=== PATIENT | female | born 1970 | race Caucasian/White ===

== ENCOUNTER 2021-09-11 09:25 | Emergency (ER) | payer OTHER, SELFPAY ==
[2021-09-11 09:32] VITALS: BP 142/91; PULSE 79; RESP 18; TEMP 36.5; O2SAT 98; BMI 27.4
--- NOTE | 2021-09-11 10:24 | ED.MEDCLEAR ---
HPI - Medical Clearance General Chief complaint: Medical Clearance Stated complaint: medical clearance Time Seen by Provider: 09/11/21 10:18 Source: patient Mode of arrival: ambulatory Limitations: no limitations History of Present Illness HPI Narrative: 50-year-old female reports that she is currently in a sober house of [facility] and she reports that she drank approximately 6 vodka shots last night and then went back to the sober house and she is not supposed to be drinking anything. She reports that she went right to bed although there was 2 other females that were arguing and she got up and told them to go to bed and 1 of them told her that she smelled like booze Therefore she was told to come here for medical clearance. She denies any drug uses. She reports that they took a drug screen by urine last night therefore she does not need a drug urine screen. She denies any other symptoms complaints or concerns or thoughts of withdrawal at this time. She denies any SI/HI/ auditory visualizations thoughts of self-injury. complaint: medical clearance requested Onset (ago): day(s) ( Today) Reason for Medical Clearance: intoxication Place: other ( living at Sober House at this time) Alleged Intoxication: Yes Compliant with Home Medications: Yes Traumatic Symptoms: denies traumatic injury Associated Symptoms: denies other symptoms Treatments Prior to Arrival: none Related Information Allergies Allergy/AdvReac Type Severity Reaction Status Date / Time No Known Allergies Allergy Verified 09/11/21 09:32 Review of Systems Review of Systems: Constitutional : No Fever, No Chills ENT/Mouth : No Ear Pain, No Nasal Congestion, No sore throat Eyes: No Eye Pain, No Swelling, No Redness Cardiovascular : No Chest Pain, No SOB Respiratory : No Cough, No Sputum, No Dyspnea Gastrointestinal : No ingestions, No Nausea, No Vomiting, No Diarrhea, No Hematochezia, No Melena Genitourinary : No Dysuria, No Urinary Frequency, No Hematuria Musculoskeletal : No Myalgias Skin : No Skin Lesions, No rash Neuro : No Weakness, No Numbness, No Paresthesias, No Dizziness, No Headache Psych : No Anxiety, No Depression, No SI/HI, No AVH, No thoughts of self injury Heme/Lymph: No Lymphadenopathy Endocrine : No Polyuria, No Polydipsia Yes all other systems are reviewed and are negative [facility] Past Medical History Attestation statement: The following information was validated with the patient. Social History Social History Advance Directives: No Advance Directives Information Provided: Yes Patient : No Physical Exam Vital Signs: Vital Signs: Last Vital Signs Temp 97.7 F 09/11/21 09:32 Pulse 79 09/11/21 09:32 Resp 18 09/11/21 09:32 BP 142/91 H 09/11/21 09:32 Pulse Ox 98 09/11/21 09:32 BMI result Body Mass Index 27.4 vital signs have been reviewed as normal and appeared to be correct. Blood pressure 142/91 Heart rate normal. Respiration rate normal. Temperature normal. Oxygen saturation normal. Appearance: Alert. Oriented X3. No acute distress. Head: Normal external exam. Normocephalic. Eyes: PERRLA. EOMI. Conjunctiva and sclera normal. Eyelids normal. ENT: Pharynx normal. Uvula midline. Moist mucous membranes. Neck: Normal inspection. Neck supple. FROM. No adenopathy. No meningeal signs. CVS: Normal heart rate and rhythm. Respiratory: No respiratory distress. Painless inspiration. Back: Full range of motion noted. Skin: Skin warm and dry. Normal skin color. Normal skin turgor. No rashes/lesions/lacerations noted. Extremities: Extremities exhibit normal range of motion. Extremities nontender. Neuro: Oriented X 3. No motor deficit. No sensory deficit. Reflexes normal. Normal steady gait. Course Course Course Narrative: 10:20am - 50-year-old female reports that she is currently in a sober house of [facility] and she reports that she drank approximately 6 vodka shots last night and then went back to the sober house and she is not supposed to be drinking anything. She reports that she went right to bed although there was 2 other females that were arguing and she got up and told them to go to bed and 1 of them told her that she smelled like booze Therefore she was told to come here for medical clearance. She denies any drug uses. She reports that they took a drug screen by urine last night therefore she does not need a drug urine screen. Plan: Labs Including ETOH level then re-evaluate. Reevaluation(s) Reevaluation #1: - ETOH level negative. All other labs within normal limits. Will DC home instructions to follow-up with primary care provider and to stay sober as she is supposed to be on a sober house and not drinking any alcohol and not doing any drugs. Patient understands agrees with this plan. Time: 11:24 MDM - Medical Clearance Medical Records Attestation: I reviewed the patient's medical records. Lab Data Attestation: I reviewed the patient's lab results. Result diagrams: 09/11/21 10:54 09/11/21 10:54 Labs: Lab Results 09/11/21 09/11/21 09/11/21 Range/Units 10:54 10:54 10:54 WBC 6.0 (4.8-10.8) X10*3/uL RBC 4.23 (4.20-5.50) X10*6/uL Hgb 12.1 (12.0-16.0) g/dl Hct 37.1 (37.0-47.0) % MCV 87.7 (80.0-98.0) fL MCH 28.6 (27.0-33.0) pg MCHC 32.6 (31.0-35.0) g/dl RDW 12.5 (11.0-16.0) % Plt Count 271 (160-400) X10*3/uL MPV 10.4 (9.4-12.3) fL Immature Gran % (Auto) 0.3 (0.0-0.4) % Neut % (Auto) 69.4 (45-73) % Lymph % (Auto) 20.8 (20-40) % Miller % (Auto) 6.0 (2-11) % Eos % (Auto) 3.0 (0-4) % Baso % (Auto) 0.5 (0-2) % Lymph # (Auto) 1.3 (1.2-4.9) X10*3/uL Miller # (Auto) 0.4 (0.1-1.2) X10*3/uL Eos # (Auto) 0.2 (0.0-0.4) X10*3/uL Baso # (Auto) 0.0 (0.0-0.2) X10*3/uL Abs Immat Gran (auto) 0.02 (0.00-0.03) X10*3/uL Absolute Neuts (auto) 4.2 (2.0-8.3) x10*3/uL Absolute Nucleated RBC 0.000 (0.0-0.012) X10*3/uL Nucleated RBC % (auto) 0.0 (0.0-0.2) /100WBC Sodium 138 (135-145) mmol/L Potassium 4.4 (3.3-5.1) mmol/L Chloride 102 (96-108) mmol/L Carbon Dioxide 27 (22-29) mmol/L Anion Gap 13 (12-20) BUN 11 (9-16) mg/dL Creatinine 0.83 (0.5-1.4) mg/dL Estim Creat Clear Calc 74.9 Estimated GFR > 60 Random Glucose 97 (60-115) mg/dL Calcium 9.5 (8.4-10.2) mg/dL Magnesium 2.2 (1.6-2.6) mg/dL Beta HCG, Quant mIU/mL Ethyl Alcohol < 10 mg/dL 09/11/21 Range/Units 10:54 WBC (4.8-10.8) X10*3/uL RBC (4.20-5.50) X10*6/uL Hgb (12.0-16.0) g/dl Hct (37.0-47.0) % MCV (80.0-98.0) fL MCH (27.0-33.0) pg MCHC (31.0-35.0) g/dl RDW (11.0-16.0) % Plt Count (160-400) X10*3/uL MPV (9.4-12.3) fL Immature Gran % (Auto) (0.0-0.4) % Neut % (Auto) (45-73) % Lymph % (Auto) (20-40) % Miller % (Auto) (2-11) % Eos % (Auto) (0-4) % Baso % (Auto) (0-2) % Lymph # (Auto) (1.2-4.9) X10*3/uL Miller # (Auto) (0.1-1.2) X10*3/uL Eos # (Auto) (0.0-0.4) X10*3/uL Baso # (Auto) (0.0-0.2) X10*3/uL Abs Immat Gran (auto) (0.00-0.03) X10*3/uL Absolute Neuts (auto) (2.0-8.3) x10*3/uL Absolute Nucleated RBC (0.0-0.012) X10*3/uL Nucleated RBC % (auto) (0.0-0.2) /100WBC Sodium (135-145) mmol/L Potassium (3.3-5.1) mmol/L Chloride (96-108) mmol/L Carbon Dioxide (22-29) mmol/L Anion Gap (12-20) BUN (9-16) mg/dL Creatinine (0.5-1.4) mg/dL Estim Creat Clear Calc Estimated GFR Random Glucose (60-115) mg/dL Calcium (8.4-10.2) mg/dL Magnesium (1.6-2.6) mg/dL Beta HCG, Quant < 2 mIU/mL Ethyl Alcohol mg/dL Discharge Plan Discharge Clinical Impression: Wellness examination Patient Disposition: Home, Self-Care Instructions: Normal Exam (ED), Medical Clearance for Substance Abuse Treatment (ED) Additional Instructions: you had no alcohol in your system today. You told me you did not need a drug urine screen as the sober house completed that last night. If you are in a sober house please do not drink or do any drugs. Return if any new or worsening symptoms. Follow up with her primary care provider. Referrals: Jones Hardy MD [Primary Care Provider] - 2 days Print Language: Kuwaiti
[2021-09-11 11:00] LABS: MANUAL DIFF FLAG NO
[2021-09-11 11:04] LABS: Basophils Percent Auto 0.5 % (0-2); Eosinophils Absolute Auto 0.2 X10*3/uL (0.0-0.4); Hematocrit 37.1 % (37.0-47.0); Hemoglobin 12.1 g/dl (12.0-16.0); Imm Gran Abs Auto 0.02 X10*3/uL (0.00-0.03); Imm Gran Pct Auto 0.3 % (0.0-0.4); Lymphocytes Absolute Auto 1.3 X10*3/uL (1.2-4.9); Lymphocytes Percent Auto 20.8 % (20-40); Mean Corpuscular HGB Conc 32.6 g/dl (31.0-35.0); Mean Corpuscular Hemoglobin 28.6 pg (27.0-33.0); Mean Corpuscular Volume 87.7 fL (80.0-98.0); Mean Platelet Volume 10.4 fL (9.4-12.3); Monocytes Absolute Auto 0.4 X10*3/uL (0.1-1.2); Neutrophils Absolute Auto 4.2 x10*3/uL (2.0-8.3); Neutrophils Percent Auto 69.4 % (45-73); Platelet Count 271 X10*3/uL (160-400); Red Blood Count 4.23 X10*6/uL (4.20-5.50); Red Cell Distribution Width 12.5 % (11.0-16.0)
[2021-09-11 11:18] LABS: Ethanol < 10 mg/dL
[2021-09-11 11:19] LABS: Anion Gap 13 (12-20); Blood Urea Nitrogen 11 mg/dL (9-16); Calcium 9.5 mg/dL (8.4-10.2); Carbon Dioxide 27 mmol/L (22-29); Chloride 102 mmol/L (96-108); Creatinine Clr Calc Pharmacy 74.9; Estimated Glomerular Filt Rate > 60; Glucose Random 97 mg/dL (60-115); Magnesium 2.2 mg/dL (1.6-2.6); Potassium 4.4 mmol/L (3.3-5.1); Sodium 138 mmol/L (135-145)
[2021-09-11 11:23] LABS: HCG Quantitative < 2 mIU/mL
== END 2021-09-11 11:27 | disposition home or self-care (01) ==
PROVIDERS: Physician Assistant Medical; Emergency Provider Emergency Medicine; PCP Internal Medicine
DX: Z02.83 Encounter for blood-alcohol and blood-drug test (principal); Z02.2 Encounter for examination for admission to residential institution
CPT/HCPCS: 36415; 80048; 82077; 83735; 84702; 85025; 99283

== ENCOUNTER 2022-05-26 18:54 | Emergency (ER) | payer OTHER, SELFPAY ==
[2022-05-26 19:02] VITALS: BP 128/90; PULSE 97; O2SAT 97
[2022-05-26 19:19] VITALS: BP 156/99; PULSE 67; RESP 18; TEMP 36.7; O2SAT 97; BMI 27.1
--- NOTE | 2022-05-26 21:40 | ED.FALL ---
HPI - Fall General Chief Complaint: Fall Stated Complaint: FALL YESTERDAY/HEAD STIKE Time Seen by Provider: 05/26/22 21:40 Source: patient Mode of arrival: EMS Limitations: no limitations History of Present Illness HPI Narrative: Which was of alcohol abuse went to detox place and told them that she fell yesterday they asked her to be evaluated at the ER. Patient denied any loss of consciousness no signs of injury no vomiting no seizures patient has few shots of drink prior to arrival Related Data Allergies Allergy/AdvReac Type Severity Reaction Status Date / Time No Known Allergies Allergy Verified 05/26/22 19:19 Review of Systems Review of Systems: Yes all other systems are reviewed and are negative PMFSH Social History Social History Advance Directives: No Advance Directives Information Provided: No Physical Exam Vital Signs: Vital Signs: Last Vital Signs Temp 98.0 F 05/26/22 19:19 Pulse 67 05/26/22 19:19 Resp 18 05/26/22 19:19 BP 156/99 H 05/26/22 19:19 Pulse Ox 97 05/26/22 19:19 O2 Del Method 05/26/22 19:19 BMI result Body Mass Index 27.1 Appearance: Alert. Oriented X3. No acute distress. Intoxicated Eyes: PERRLA, No Nystagmus HEENT: Pharynx normal. Oral Mucosa moist no signs of injury no scalp tenderness or swelling Neck: Normal inspection. Neck supple. CVS: Normal heart rate and rhythm. Pulses normal. Respiratory: No respiratory distress. Equal air entry bilateral, no wheezing/rales/rhonchi Abdomen: Soft and nontender. Bowel sounds are present, no mass palpable, no CVA tenderness Skin: Skin warm and dry. Normal skin color. Normal skin turgor. Extremities: No lower extremity edema. No calf tenderness Neuro: Oriented X 3. No motor deficit. Steady gait MDM - Fall MDM Narrative Medical decision making narrative: Patient with minor head injury more than 24 hours denies any headache no warning signs of internal injury will discharge patient home advised to stop drinking and follow up with detox Discharge Plan Discharge Clinical Impression: Alcohol abuse, Minor head injury Patient Disposition: Home, Self-Care Instructions: Head Injury (ED), Abuse of Alcohol (ED) Additional Instructions: Stop drinking alcohol Medically cleared for detox placement Report to the ER if any seizures loss of consciousness or any headache
== END 2022-05-26 22:14 | disposition home or self-care (01) ==
PROVIDERS: Emergency Provider Internal Medicine
DX: F10.10 Alcohol abuse, uncomplicated (principal); Y90.9 Presence of alcohol in blood, level not specified; S09.90XA Unspecified injury of head, initial encounter; W19.XXXA Unspecified fall, initial encounter; Y93.9 Activity, unspecified; Y92.9 Unspecified place or not applicable; Y99.9 Unspecified external cause status
CPT/HCPCS: 99282

== ENCOUNTER 2025-02-14 13:03 | Emergency (ER) | payer MEDICAID, SELFPAY ==
[2025-02-14 13:22] VITALS: BP 108/74; BP 90/55; PULSE 76; RESP 16; TEMP 36.5; O2SAT 96; O2SAT 98; BMI 32.9
--- NOTE | 2025-02-14 13:33 | ED_ITS ---
HPI - Syncope General Chief Complaint: Syncope Stated Complaint: SYNCOPE Time Seen by Provider: 02/14/25 13:33 Source: patient and family Mode of arrival: EMS History of Present Illness ED Provider: Magali Lopez PA-C HPI narrative: 54-year-old female presenting to emergency department today for evaluation of witnessed syncope. Patient was in her daughter's car in the parking lot in the mall and was noted to lose consciousness as daughter was lying her down. She spent day at mall with her daughter prior to arrival in search of a dress two wear to her ex-spouses for whom she shares a daughter, celebration of life which is for tomorrow. Daughter gives majority of the history as mom reports I don't feel well enough to answer right now . When daughter picked up her mom, the patient, to bring her to the mall with her she already had a drink with a few nips in it, patient confirmed this as accurate. Mom states that she did not have a chance to finish it though and does not think I couldnt be drunk I didnt drink enough . She continued to drink in the mall believing she was not intoxicated. Prior to LOC in car, Daughter reports that her mom told her she did not feel very well and then witnessed the mom to be unresponsive for what she felt like was around 15 seconds with eyes rolling back. There was not seizure-like activity noted and no tongue bites or incontinence reported either. EMS arrived after being called by daughter; patient was already alert by the time they arrived but still lying down. BP was measured in the 90s over 50 range. Mom does no remember to confirm, but daughter witnessed mom to roll over to her side in the seat, after passing out and vomited a few times. Patient's daughter did not see any blood in it. Patient did not eat anything today as she did not feel hungry. Per patient and daughter, patient's blood pressure is usually 150 over 90s at home. she measures it would an arm cuff. While daughter gives history, mom still interjects with her own facts or comments. She has been on metoprolol for a while now but last had a medication change for it a month ago. Patient does not feel her 'LOC' was due to drinking but due to her medication. She reports having recurrent syncopal episodes because of this for which she has discussed with her pcp. She points to her left knee states, it always has scarring on it due to my syncopal episodes . Patient states that she never hit her head during these though and did had a post-ictal state. Patient sounds familar with meaning of these terms as they were not offered by myself today or witnessed to be by another person. Patient continues to feel nauseous. She is denying being under alcohol intoxication and has no illicit drug use. Despite hx of syncope mentioned, she has not had any recent falls or infections that she has not sought medical attnetnio for. She denies other associated sxs such as headache, dizziness, limb pain or paresthesias, shortness a breath or abdominal discomfort. No diarrhea. Daughter at bedside and reports she thinks her mom needs to be more responsible with drinking and that she would be driving her arm if her mom is discharged. Prodromal symptoms: other ( not feeling well ) Witnessed: Yes - by Other (daughter in car) Context: alcohol use and other (sitting) Injuries sustained associated with event: none Current symptoms: nausea History: previous syncopal episode Treatments prior to arrival: other (4 mg zofran IV via EMS) Related Data Allergies Allergy/AdvReac Type Severity Reaction Status Date / Time No Known Allergies Allergy Verified 02/14/25 13:25 [facility] Past Medical History Attestation statement: The following information was validated with the patient. Source: old records reviewed, obtained from family and nursing notes reviewed Social History Social History Advance Directives: No Advance Directives Information Provided: No Physical Exam 2 Vital Signs: Vital Signs: Last Vital Signs Temp 98.2 F 02/14/25 15:29 Pulse 62 02/14/25 15:29 Resp 16 02/14/25 15:29 BP 140/78 H 02/14/25 15:29 Pulse Ox 98 02/14/25 15:29 O2 Del Method Room Air 02/14/25 15:29 BMI result Body Mass Index 32.9 Const: Orientation/consciousness: oriented to person, oriented to place and oriented to time HEENT: Head: Yes normal to inspection, Yes No palpable skull fracture present, Yes normocephalic and Yes atraumatic Ears: hearing grossly normal bilaterally and TM's normal bilaterally General nose exam: Normal external nose present Face and sinus: Yes normal facial exam and Yes dry mucous membranes Mouth: l ip normal and oropharynx normal Teeth and gingiva: dentition normal Eyes: General: appearance normal, both eyes and all related structures A lignment and Position: alignment normal Periorbital: periorbital findings normal Eyelids: Yes eyelids normal Conjunctivae: conjunctivae normal S clerae: sclerae normal Pupils: Equal, round and reactive pupils present and Pupil accommodation reflex normal EOM: EOMs intact bilaterally Neck: Neck: Yes normal visual inspection, Yes full ROM, Yes no lymphadenopathy, Yes trachea midline and Yes supple Chest: Chest palpation & inspection: normal inspection of the chest Resp: Effort & Inspection: normal respiratory effort and able to speak in complete sentences Auscultation: clear to auscultation bilaterally Cardio: Jugular venous distension: no JVD Rate: regular rate Rhythm: r egular rhythm Peripheral pulses: Peripheral pulses 2+ throughout GI: Inspection: Yes normal to inspection Rectal Exam - Female: deferred : General: Yes no CVA tenderness Back/Spine/Pelvis: Back: no CVA tenderness Cervical Spine: normal cervical lordosis and cervical ROM normal Thoracic/Lumbar Spine: thoracic and lumbar spine normal to inspection Pelvis: no pain with lateral compression Skin: General skin exam: no rashes or lesions noted and elasticity normal L esions: no lesions Trauma: no lacerations or abrasions Wounds: no wounds Hair: normal Neuro: General: oriented to person, oriented to place, oriented to time, moves all extremities, no focal motor deficits, CN's II-XI intact bilaterally and Unable to assess gait Cranial nerves: Yes CN's II-XII intact bilaterally and Yes Equal, round and reactive pupils present Cognition (Neuro): normal cognition Gait exam (Neuro): Unable to assess gait Motor exam (neuro): 5/5 motor strength present throughout and Pronator motor function not present Psych: Appearance: disheveled Speech and movement: Restless speech present Affect: Labile affect present Attitude: cooperative Thought process: T angential thought process present Medications Administered Discontinued Medications Generic Name Dose Route Start Last Admin Trade Name Freq PRN Reason Stop Dose Admin Lactated Ringer's 1,000 mls @ 999 mls/hr 02/14/25 13:33 02/14/25 14:50 Lr IV 02/14/25 14:33 Infused .Q1H1M ONE Infusion Ondansetron HCl 4 mg 02/14/25 13:33 02/14/25 13:40 Ondansetron Hcl 4 Mg/2 Ml Vial IVPUSH 02/14/25 13:34 4 mg ONCE ONE Administration Medical Decision Making Medical Decision Making [facility] Narrative: 55-year-old female with PMH significant for HTN, presenting to the emergency department today after having had a witnessed loss of consciousness earlier today by her daughter. patient was brought in via EMS stable with on-site blood pressure check upon arrival with her being alert in the supine position with BP of around 90/50. GCS of 15 and AOx4. it was my initial impression the patient was under the intoxication of alcohol without evidence of withdrawal complications or with signs of obvious trauma. due to patient denying being acutely intoxicated despite reported use of alcohol from her daughter in ETOH level was ordered to clinically correlate patient's presentation and guide future medical decisions should her status change or workup reveal other causes. an EKG was done and is reassuring showing no evidence of malignant arrhythmia or. ischemia. patient was given LR and Zofran by EMS this was continued in the ED. She does not appear post-ictal or have H and P concerning for seizure, unlikely. patient remained closely monitored during her stay, there were no fluctuations in her mental status in fact remained well alert the entire visit despite also being underneath the obvious influence of alcohol. patient's basic lab workup is reassuring and her blood pressure is improved and stable. as there was no fall to the ground resulting in head injury or trauma to the spine imaging was deferred. patient has been able to show that she can tolerate p.o. fluids and void regularly and now appears to be less intoxicated with stable gait. at this time patient has declined any AA resources as she blames her current use of alcohol as an isolated event. Cage Q is 0. patient witnessed syncopal event was likely vasovagal in regards to dehydration lack of food and use of alcohol. The event today it is unlikely directed related to her metoprolol dose change from a month ago but certainly is contributory risking lower BP for the day in general. Patient does not routinely to monitor her BP or know the reasons to withhold dosing of it. Education was given but not sure if well received. I have recommended PCP/ cardio f/u and gave ED return precautions. Both patient and her daughter demonstrated verbal understanding of the plan and agreed; she was d/c to home stable. Differential Diagnosis Differential Diagnoses: The differential diagnosis associated with the presentation includes seizure-like activity, DTs, dehydration, OD, alcoholic acidosis, viral sydnrome Admission/Observation Consideration of admission/observation: Escalation of care including admission/observation considered Patient would have been admitted to the hospital had [his/her/their] work up had any findings where hospital admission was appropriate and [his/her/their] clinical presentation warranted hospital admission. Lab Data MDM Lab Attestation statement: I reviewed the patient's lab results. 02/14/25 14:28 Labs: Lab Results 02/14/25 Range/Units 14:28 Sodium 137 (135-145) mmol/L Potassium 4.0 (3.3-5.1) mmol/L Chloride 102 (96-108) mmol/L Carbon Dioxide 30 H (22-29) mmol/L Anion Gap 9 L (12-20) BUN 17 H (9-16) mg/dL Creatinine 0.91 (0.5-1.4) mg/dL Estim Creat Clear Calc 71.6 Estimated GFR > 60 Random Glucose 103 (60-115) mg/dL Fasting Glucose 105 H (60-99) mg/dL Calcium 9.1 (8.4-10.2) mg/dL Magnesium 1.8 (1.6-2.6) mg/dL Total Bilirubin 0.2 (0.0-1.0) mg/dL AST 30 (5-31) U/L ALT 25 (0-31) U/L Alkaline Phosphatase 81 (39-117) U/L Total Protein 7.5 (6.5-8.0) g/dL Albumin 4.2 (3.5-5.0) g/dL Lipase 15 (8-78) U/L Ethyl Alcohol 151 mg/dL Independent Interpretation I performed an independent interpretation of an: EKG Interpretation: No T wave abnormality or prolonged QT noted. No malignant arrhythmia or ischemia. Independent Historian Clinical information obtained from an independent historian. History obtained from or confirmed by: EMS and Other (daughter) Prescription Management I considered prescription management with: Other (antinausea medicine) Chronic Conditions Patient?s care impacted by: Hypertension Social Determinants Patient?s care significantly limited by Social Determinants of Health including: Alcoholism and drug addiction in family and Problems related to primary support group Discharge Plan Discharge Clinical Impression: Syncope, Alcohol intoxication, Acute dehydration Patient Disposition: Home, Self-Care Instructions: Dehydration (DC), Syncope (ED), Alcohol Intoxication (ED) Additional Instructions: You were evaluated in the ER for your episode of fainting. You had blood work done that showed no evidence of electrolyte imbalance, but acute alcohol intoxication. You received 1 L of IV fluids while here blood pressure is much improved likely from acute dehydration as well. As your daughter is driving home and will allow for you to follow up home now but please continue to stay hydrated and eat Your episode of fainting was likely a vasovagal episode, or fainting as a result of sensitivity of your vagus nerve causing your blood pressure and heart rate to drop. The EKG showed no concerns. Please follow-up with your PCP regarding your episode today. You may also follow-up with the Table Attendant. If you have a recurrent episode please lay down on the ground and elevate your legs. If you develop any chest pain, palpitations or sense that your heart is racing, difficulty breathing, or any other new, concerning symptoms please return. Referrals: [facility] [Provider Group] - 1 week Interventions: ED Discharge Assessment Last Done: 02/14/25 15:29 Discharge Date/Time: 02/14/25 15:50 Print Language: [place]araguan
--- NOTE | 2025-02-14 13:34 | ECG_ITS ---
Test Reason : SYNCOPE Blood Pressure : */* mmHG Vent. Rate : 71 BPM Atrial Rate : 71 BPM P-R Int : 118 ms QRS Dur : 88 ms QT Int : 414 ms P-R-T Axes : 25 73 59 degrees QTcB Int : 449 ms Normal sinus rhythm Normal ECG No previous ECGs available Referred By: Magali Lopze Electronically Signed By: MELISSA KO
[2025-02-14] MEDS: Lactated Ringers 1,000 ML 999 ML IV (13:37)
[2025-02-14] MEDS: ondansetron HCL 4 MG/2 ML VIAL IVPUSH (13:40)
--- OUTSIDE RECORDS SUMMARY | 2025-02-14 14:23 | XMS_ITS | Encounter Summary ---
Author Organization [facility] Address [address] [place] [address] Care Team Providers Care Bench Lathe Operator Name Role Phone KanePita lebron VISITOR SERVICES REPRESENTATIVE-Vivien Primary Care Provider [phone] Reason for Visit * Reason Comments Case Management C3/CM Care Managemen t Chart Review Encounter Details Date Type Department Care Team (Late st Contact Info) Description 02/11/2025 Interim Notes Caring [address] [phone] Rosa Clifford RN [address] [place] [address] Social History Tobacco Use Types Packs/Day Years Used Date Smoking Tobacco: Former Cigarettes Passive Smoke Exposure: Never Smokeless Tobacco: Never Comments:Quit 3 years ago Alcohol Use Standard Drinks/Week Comments Not Currently 0 (1 standard drink = 0.6 oz pur e alcohol) 5 months sober Social Connections Answer Date Recorded Connectedness 0 06/28/2024 Financial Resource Strain Answer Date R ecorded Financial Resource Strain 0 2023 Stress Answer Date Recorded Stress 0 06/28/2024 Physical Activity Answer Date Recorded Physical Activity 0 06/28/2024 Food Insecurity Answer Date Recorded Food 0 07/05/2024 Transportation Needs Answer Date Record ed Transportation 0 06/28/2024 Housing Stability Answer Date Recorded Housing 0 06/28/2024 Safety and Environment Answer Date Nikunj rded Safety 0 06/28/2024 Utilities Answer Date Recorded Utilities 0 06/28/2024 Employment Answer Date Recorded Stress 0 06/28/2024 Comments No Sex and Gender Information Value Date Recorded Sex Assigned at Female 05/01/2024 8:42 AM PDT Legal Sex Female 8:42 AM PDT Gender Identity Female 05/01/2024 8:42 AM PDT Sexual Orientation Straight 05/01/2024 8: 42 AM PDT documented as of this encounter Progress Notes * Rosa Clifford RN - 02/11/2025 8:56 AM EDT CM Rosa Clifford RN, performed chart review, in anticipation of initial assessment with patient, as patient has stratified for C3 Adult Complex Care through Delegated Risk Strat. History significant for anxiety state, insomnia, HTN, vitamin D deficiency, hypothyroidism, prediabetes, substance abuse. Specialists include [facility]. ED visits within the previous 12 months include 08/30/24, 08/19/24, 05/19/24, 05/02/24, 04/23/24. Last appointment in PCP office on 01/21/25. Next appointment scheduledfor 04/09/25. Pt is connected with [facility]. documented in this encounter Plan of Treatment Upcoming Encounters Date Type Department Care Team (Late st Contact Info) Description 04/09/2025 9:20 AM EDT Office Visit [facility] [address] [place] [phone] Slava Valentine MD [address] [place] [address] documented as of this encounter Visit Diagnoses Not on filedocumented in this encounter Additional Health Concerns Assessment Noted Time PHQ-9 Depression Total Score: 0 10/15/19 10:20 AM PST documented as of this encounter Care Teams Bench Lathe Operator Relationship Specialty Start Date End Date Pita Middleton FNP-C [address] [place] [address] PCP - General Internal Medicine 10/17/24 documented as of this encounter
--- OUTSIDE RECORDS SUMMARY | 2025-02-14 14:23 | XMS_ITS | Encounter Summary ---
Author Organization [employer] [facility] Address [address] [place] [address] Care Team Providers Care Soundscriber Mechanic Name Role Phone Unavailable Primary Care Provider Unavailabl e Reason for Visit * Reason Onset Date Comments rs cx office appt 07/29/2024 Encounter Details Date Type Department Care Team ([facility] Contact Info) Description 07/29/[address] [facility] [address] [place] [phone] Daniel Gatica BDS [address] [place], [place] [phone] rs cx office appt Social History Tobacco Use Types Packs/Day Years Used Date Smoking Tobacco: Every Day Cigarettes Passive Smoke Exposure: Current Comments:Vaping everyday Alcohol Use Standard Drinks/Week Comments Not Asked 0 (1 standard drink = 0.6 oz pur e alcohol) Comments Unknown Sex and Gender Information Value Date Recorded Sex Assigned at Female 12/26/2023 2:52 PM EDT Legal Sex Female 2:08 PM EDT Gender Identity Female 12/26/2023 2:52 PM EDT Sexual Orientation Straight 12/26/2023 2: 52 PM EDT documented as of this encounter Miscellaneous Notes * Telephone Encounter - Shannan Cloud - 07/29/2024 2:16 PM EDT Patient called in to rs appt that was cancelled by office due to provider not being available on appt date. Patient rs to 08/[address] documented in this encounter Plan of Treatment Upcoming Encounters Date Type Department Care Team ([facility] Contact Info) Description 02/18/2025 10:00 AM EDT Office Visit [facility] [address] [place] [address] Daniel Gatica BDS [address] [place] [address] 06/16/2025 1:00 PM EDT Office Visit [facility] [address] [place] [address] Liyah Rocha [address] [place] [address] documented as of this encounter Visit Diagnoses Not on filedocumented in this encounter
--- OUTSIDE RECORDS SUMMARY | 2025-02-14 14:23 | XMS_ITS | Encounter Summary ---
Author Organization [email or web address] [facility] Address [address] 7 [place] [address] Care Team Providers Care Email Developer Name Role Phone Unavailable Primary Care Provider Unavailabl e Encounter Details Date Type Department Care Team ([facility] Contact Info) Description 02/03/2025 Telephone [facility] [address] [place] [phone] Daniel Gatica BDS [address] [place] [address] [phone] Social History Tobacco Use Types Packs/Day Years Used Date Smoking Tobacco: Every Day Cigarettes Passive Smoke Exposure: Current Smokeless Tobacco: Never Comments:Vaping everyday Alcohol Use Standard Drinks/Week Comments Not Asked 0 (1 standard drink = 0.6 oz pur e alcohol) Comments Unknown Sex and Gender Information Value Date Recorded Sex Assigned at Female 12/26/2023 2:52 PM EDT Legal Sex Female 2:08 PM EDT Gender Identity Female 12/26/2023 2:52 PM EDT Sexual Orientation Straight 12/26/2023 2: 52 PM EDT documented as of this encounter Plan of Treatment Upcoming Encounters Date Type Department Care Team ([facility] Contact Info) Description 02/18/2025 10:00 AM EDT Office Visit [facility] [address] [place] [phone] Daniel Gatica BDS [address] [place] [phone] 06/16/2025 1:00 PM EDT Office Visit [facility] [address] [place] [phone] Liyah Rocha [address] [place] [address] [phone] documented as of this encounter Visit Diagnoses Not on filedocumented in this encounter
--- OUTSIDE RECORDS SUMMARY | 2025-02-14 14:23 | XMS_ITS | Encounter Summary ---
Author Organization [employer] [facility] Address [address] [facility] [address] [facility] 7t [place] [address] Care Team Providers Care Renal Case Manager Name Role Phone Unavailable Primary Care Provider Unavailabl e Reason for Visit * Reason Onset Date Comments medication 12/28/2023 Encounter Details Date Type Department Care Team ([facility] Contact Info) Description 12/28/2023 Telephone [facility] [address] [place] [phone] Daniel Gatica BDS [address] [place], [place] [phone] medication Social History Tobacco Use Types Packs/Day Years [...] * Telephone Encounter - Shannan Cloud - 12/28/2023 9:14 AM EDT Patient called in looking for antibiotic and ibuprofen to be sent to pharmacy It looks documented that it was to be sent but there was no pharmacy on file. Pharmacy information gathered and entered into chart. Can medication be sent DR documented in this encounter Plan of Treatment Upcoming Encounters Date Type Department Care Team ([facility] Contact Info) Description 02/18/2025 10:00 AM EDT Office Visit [facility] [address] [place] [phone] Daniel Gatica BDS [address] [place] [address] 06/16/2025 1:00 PM EDT Office Visit [facility] [address] [place], [place] [phone] Liyah Rocha [address] [place] [address] documented as of this encounter Visit Diagnoses Not on filedocumented in this encounter
--- OUTSIDE RECORDS SUMMARY | 2025-02-14 14:23 | XMS_ITS | Clinical Summary ---
Author Organization [employer] Address [address] [place] [address] Care Team Providers Care Lace Weaver Name Role Phone Unavailable Primary Care Provider Unavailabl e Allergies Active Allergy Reactions Criticality Noted Date Comments Hydrobenzthiazide 12/27/2023 Medications gabapentin (Neurontin) 600 MG tablet Take 600 mg by mouth in the morning. Active levothyroxine (Synthroid, Levoxyl) 100 MCG tablet Take 100 mcg by mouth before breakfast. Active busPIRone (Buspar) 15 MG tablet Take 15 mg by mouth 2 times daily. Active DULoxetine (Cymbalta) [address] capsule Take 30 mg by mouth in the morning. Do not crush or chew. Active famotidine (Pepcid) 20 MG tablet Take 20 mg by mouth 2 times daily. Active cholecalciferol 25 MCG (1000 UT) capsule Take 1,000 capsules by mouth in the morning. Active thiamine (Vitamin B-1) 100 MG tablet Take 100 mg by mouth in the morning. Active lisinopril 10 MG tablet Take 10 mg by mouth in the morning. Active metoprolol succinate XL (Toprol-XL) 50 MG 24 hr tablet Take 50 mg by mouth in the morning. Do not crush or chew. Active cyanocobalamin (Vitamin B-12) 100 MCG tablet Take 100 mcg by mouth in the morning. Active prazosin (Minipress) 1 MG capsule Take 1 mg by mouth at bedtime. Active acamprosate (Campral) 333 MG EC tablet Take 333 mg by mouth 3 times daily. Do not crush, chew, or split. Active acetaminophen (Tylenol) 325 MG suppository Insert 325 mg into the rectum every 4 (four) hours if needed for mild pain. Active ibuprofen 600 MG tablet Take 600 mg by mouth every 8 (eight) hours if needed for mild pain. Active traZODone (Desyrel) 100 MG tablet Take 100 mg by mouth at bedtime. Active acetaminophen (Tylenol) 500 MG tablet Take 1 tablet (500 mg) by mouth every 4 (four) hours if needed for mild pain. 30 tablet Active Active Problems No known active problems Encounters Date Type Department Care Team Description 02/03/2025 Telephone [facility] [address] [place] [phone] Daniel Gatica, BDS 01/01/2025 2:00 PM EDT Office Visit [facility] [address] [place] [phone] Yesenia Gaticaprad, BDS 12/31/2024 2:00 PM EDT Office Visit [address] [address] Beth Gaticad, BDS Dental abscess (Primary Dx) 12/10/2024 11:00 AM EST Office Visit [facility] [address] [place] [phone] Liyah Rocha 12/03/2024 3:00 PM EST Office Visit [address] [phone] Daniel Gatica, BDS from Last 3 Months Social History Tobacco Use Types Packs/Day Years Used Date Smoking Tobacco: Every Day Cigarettes Passive Smoke Exposure: Current Smokeless Tobacco: Never Tobacco Cessation:Ready to Q uit: Not Asked; Counseling Given: Not Answered Comments:Vaping everyday Alcohol Use Standard Drinks/Week Comments Not Asked 0 (1 standard drink = 0.6 oz pur e alcohol) Comments Unknown Sex and Gender Information Value Date Recorded Sex Assigned at Female 12/26/2023 2:52 PM EDT Legal Sex Female 2:08 PM EDT Gender Identity Female 12/26/2023 2:52 PM EDT Sexual Orientation Straight 12/26/2023 2: 52 PM EDT Last Filed Vital Signs Vital Sign Reading Time Taken Comments Blood Pressure 110/70 12/31/2024 2:23 PM EDT Pulse 105 12/10/2024 11:10 AM EST Temperature - - Respiratory Rate - - Oxygen Saturation - - Inhaled Oxygen Concentration - - Weight - - Height - - Body Mass Index - - Plan of Treatment Upcoming Encounters Date Type Department Care Team (Late st Contact Info) Description 02/18/2025 10:00 AM EDT Office Visit [facility] [address] [place] [address] Daniel Gatica BDS [address] [place] [address] 06/16/2025 1:00 PM EDT Office Visit [facility] [address] [place], [place] [phone] Liyah Rocha [address] [place], [place] [phone] Health Maintenance Due Date Last Done Comments CT Colonography 1972 Colonoscopy 1972 Colorectal Cancer Screening 1972 Depression Screening 1972 FIT DNA/Cologuard 1972 FIT 1972 FOBT 1972 Lipid Panel 1972 SDOH Screening 1972 Sigmoidoscopy 1972 Alcohol/Substance Use Screening 1984 Family Planning (PISQ) 12/14/1987 Hepatitis C Screening 1990 Pneumococcal Vaccine: 50+ Years (1 of 2 - PCV) 12/14/1991 Pap Smear 1993 Cervical Cancer Screening 2002 HPV/Cotest 2002 Hepatitis B Vaccines (2 of 3 - 19+ 3-dose series) 06/24/2011 05/27/2011 Mammogram 2012 COVID-19 Vaccine ( season) 2024 Influenza Vaccine (#1) 2024 , 08/24/2021, 08/20/2021, Additional history exists Dental Oral Exam 06/29/2024 12/27/2023 Zoster Vaccines (2 of 2) 12/10/2024 10/15/2024 Dental X-Ray: Bitewings 12/27/2024 12/27/2023 Dental Prophylaxis 06/13/2025 12/10/2024 Tobacco Screening 01/01/2026 01/01/2025 Dental X-Ray: Full Mouth 12/27/2026 12/27/2023 DTaP/Tdap/Td Vaccines (5 - Td or Tdap) 03/18/2034 03/18/2024, 09/18/2008, 10/09/1999, Additional history exists RSV Patients and Patients Aged 60 years or older (1 - 1-dose 75+ series) 12/14/2047 HIV Screening Completed 10/15/2024, 10/15/2024 HIB Vaccines Aged Out No longer eligi ble based on patient's age to complete this topic HPV Vaccines Aged Out No longer eligi ble based on patient's age to complete this topic Hepatitis A Vaccines Aged Out No long er eligible based on patient's age to complete this topic IPV Vaccines Aged Out No longer eligi ble based on patient's age to complete this topic Meningococcal Vaccine Aged Out No staci domingo eligible based on patient's age to complete this topic RSV under 20 months Aged Out No longe r eligible based on patient's age to complete this topic Rotavirus Vaccines Aged Out No longer eligible based on patient's age to complete this topic Procedures Procedure Name Priority Date/Time Associated Diagnosis Comments CASE PRESENTATION, DETAILED AND EXTENSIVE TREATMENT PLANNING Routine 01/01/2025 2:00 PM EDT NO CHARGE PROCEDURE Routine 01/01/2025 2 :00 PM EDT PALLIATIVE (EMERGENCY) TREATMENT OF DENTAL PAIN - MINOR PROCEDURE Routine 12/31/2024 2:00 PM EDT 13 EXTRACTION, ERUPTED TOOTH OR EXPOSED ROOT (ELEVATION/FORCEPS REMOVAL) Routine 12/31/2024 2:00 PM EDT INTRAORAL - PERIAPICAL FIRST RADIOGRAPHIC IMAGE Routine 12/31/2024 2:00 PM EDT PROPHYLAXIS - ADULT Routine 12/10/2024 1 1:00 AM EST CASE PRESENTATION, DETAILED AND EXTENSIVE TREATMENT PLANNING Routine 12/10/2024 11:00 AM EST CASE PRESENTATION, DETAILED AND EXTENSIVE TREATMENT PLANNING Routine 12/03/2024 3:00 PM EST 20 PULP CAP - INDIRECT (EXCLUDING FINAL CONGREGATIONAL) Routine 12/03/2024 3:00 PM EST 20 MO RESIN-BASED COMPOSITE - 2 SURF, POSTERIOR Routine 12/03/2024 3:00 PM EST 6 PULP CAP - INDIRECT (EXCLUDING FINAL CONGREGATIONAL) Routine 12/03/2024 3:00 PM EST 6 DL RESIN-BASED COMPOSITE - 2 SURF, ANTERIOR Routine 12/03/2024 3:00 PM EST INTRAORAL - COMPLETE SERIES OF RADIOGRAPHIC IMAGES Routine 12/27/2023 10:00 AM EDT COMPREHENSIVE ORAL EVALUATION - NEW OR ESTABLISHED PATIENT Routine 12/27/2023 10:00 AM EDT from Last 3 Months or Most Recently Relevant to Health Maintenance Insurance [facility] MEDICAID STAND ADULT [address] [place] [address]
--- OUTSIDE RECORDS SUMMARY | 2025-02-14 14:23 | XMS_ITS | Clinical Summary ---
Author Organization [facility] Address [address] [place] [address] Phone Care Team Providers Care First Line Production Supervisor Name Role Phone Sharee Walker MD Primary Care Provider Allergies Active Allergy Reactions Criticality Noted Date Comments Amlodipine Swelling 07/27/2022 Hydrobenzthiazide 12/27/2023 Other 11/12/2012 Seasonal - Other Reaction(s): Runny Nose/Rhinitis Triamterene-Hydrochlorothiazid 01/14 Other Reaction(s): OTHER syncope Medications DULoxetine (CYMBALTA) [address] capsule Take 1 capsule (30 mg total) by mouth 1 (one) time each day. 4 Active nirmatrelvir-ri tonavir (Paxlovid) 300 mg (150 mg x 2)-100 mg tablet therapy pack Take 1 Package by mouth See Admin Instructions. 4 Active ergocalciferol (VITAMIN D-2) 1,250 mcg (50,000 unit) capsule Take 1 Capsule by mouth once a week. 4 Active ibuprofen (ADVIL,MOTRIN) 600 mg tablet Take 1 Tablet by mouth every 8 hours as needed for Pain. 4 Active acetaminophen (TYLENOL) 500 mg tablet Take 1 tablet (500 mg total) by mouth every 4 (four) hours. 4 Active gabapentin (NEURONTIN) 600 mg tablet Take 1 Tablet by mouth 3 times daily. 4 Active busPIRone (BUSPAR) 15 mg tablet Take 1 Tablet by mouth daily. Per psych Shon savannahell 4 Active blood pressure test kit (BLOOD PRESSURE MONITOR MISC) Blood Pressure Monitoring (Wrist Blood Pressure Monitor) Misc 1 Device by Does not apply route daily. 4 Active ammonium lactate (LAC-HYDRIN) 12 % lotion Apply to soles of feet daily. At night wear socks to bed 4 Active traZODone (DESYREL) 100 mg tablet 1-2 tabs at night. Per psych 4 Active cyanocobalamin (VITAMIN B-12) 1,000 mcg tablet Take 1 tablet (1,000 mcg total) by mouth 1 (one) time each day. 4 Active cholecalciferol (VITAMIN D-3) 25 mcg (1,000 unit) capsule Take 1 capsule (1,000 Units total) by mouth 1 (one) time each day. 4 Active thiamine 100 mg tablet Take 1 Tablet by mouth daily. 4 Active acamprosate (CAMPRAL) 333 mg EC tablet Take 2 Tablets by mouth 3 times daily. 3 Active lisinopriL (PRINIVIL,ZESTR IL) 10 mg tablet TAKE 1 TABLET BY MOUTH DAILY 90 tablet 1 4 Active metoprolol tartrate (LOPRESSOR) 50 mg tablet Take 0.5 tablets (25 mg total) by mouth 2 (two) times a day. 30 each 4 Active loratadine (CLARITIN) 10 mg tablet Take 1 tablet (10 mg total) by mouth 1 (one) time each day. 90 tablet 1 4 Active levothyroxine (SYNTHROID, LEVOTHROID) 100 mcg tablet Take 1 tablet (100 mcg total) by mouth 1 (one) time each day before breakfast. 90 tablet 1 4 Active Active Problems Problem Noted Date Diagnosed Date Muscle tenderness 03/03/2023 Overview (08/12/2024): 03/03/2023 Only with active stretching No tenderness or weakness Check labs with electrolytes Prediabetes 08/10/2022 Overview (08/12/2024): 03/03/2023 Counseling, repeat a1c in March Motivational interviewing re; continuing to go to the gym Edema 04/06/2022 Overview (08/12/2024): 12/21/2022 Resolved and off meds Hair loss 10/20/2021 Overview (08/12/2024): 12/21/2022 Per her report much improved, CTM From prior note: Generalized, positive pull test, non scarring Ddx thyroid (most likely) telogian effluvian Will more aggressively treat thyroid, continue to monitor Skin growth 10/20/2021 Overview (08/12/2024): 12/21/2022 Refer back to derm, small interval growth Fibromyalgia 06/16/2021 Overview (08/12/2024): 02/01/2023 Sx are always there-more focally located than would expect tolerating gabapentin at 600 tid Doesn't feel like needs more medication at this time Counseled to stay active Onychomycosis 03/26/2021 Overview (08/12/2024): 12/21/2022 Wants to hold off on treatment Insomnia 04/06/2019 Overview (08/12/2024): 12/21/2022 Seeing psych, started on prazosin, getting broken sleep Heroin abuse ([facility] V24, [facility] V28) 03/12/20 19 Overview (08/12/2024): 03/03/2023 Getting IM NTX 8 months sober, going great, BHN Essential hypertension, benign 08/09/2018 Overview (08/12/2024): 03/03/2023 Slightly at goal lisinopril 10, BB Alcohol abuse 09/28/2017 Overview (08/12/2024): 03/03/2023 Still sober now 8 months Getting IM NTX Continue Residential treatment currently, transitioning to sober living house Cocaine abuse ([facility] V24, [facility] V28) 016 Overview (08/12/2024): Has been through detox in past Tobacco use disorder 06/12/2012 Overview (08/12/2024): 12/21/2022 Stopped cigarettes, currently vaping, wants to quit, starting N RT at 14 mg/day patches Never tried the patches Not ready to stop vaping Chooses Quit date 03/23 Hypothyroidism 09/15/2011 Overview (08/12/2024): 02/01/2023 Remains at goal Anxiety state 01/03/2006 Overview (08/12/2024): 03/03/2023 Seeing psych Asad Sharpe. Continues to do well on prazosin and buspar Backache 01/03/2006 Overview (08/12/2024): IMO update Encounters Date Type Department Care Team Description 02/08/2025 Telephone Adult Medicine - [address] [address] Sharee Walker MD from Last 3 Months Immunizations Name Administration Dates Next Due Hepatitis B (Jojflzs-H-Gpaug , Recombivax HB-Adult) 19yo and older 05/27/2011 Influenza Quadravalent, MDCK , 0.5ml, preservative free (Flucelvax) 6mo and older 09/08/2023,08/24/2021 Influenza Quadravalent, MDCK , 0.5ml, with preservative (Flucelvax) 6mo and older 07/06/2018 Influenza trivalent, 0.5mL, preservative free (Fluarix; FluLaval; Fluzone) ages 6mo and older (Afluria) 3 years and older 07/04/2020 Influenza trivalent, with pr eservative (Fluzone; Afluria) 6mo and older 09/20/2016,06/23/2015 Influenza, Unspecified 08/20/2021 MMR, measles mumps and rubel la Live (Priorix; M-M-R II) 12mo and older 05/27/2011 Measles 05/12/2009 Mumps 05/12/2009 Rubella 05/12/2009 Td Tetanus diptheria (Tdvax) 7yo and older 10/09 Tdap Tetanus diptheria acell ular pertussis (Boostrix; Adacel) 7yo and older 03/18/2024,09/18/2008,10/09/1999 Surgical History Surgery Date Site/Laterality Comments SECTION 1993 PROCEDURE: HISTORICAL DELIVERY; COMMENT: x1 WISDOM TOOTH EXTRACTION 1994 PROCEDURE: HISTORICAL WISDOM TEETH EXTRACTION Medical History Medical History Date Comments Backache, unspecified 01/03/2006 DX:Backach e, unspecified Other alteration of consciousness 01/03/2006 DX:Other alteration of consciousness Cigarette smoker DX:Cigarette sm oker Anemia DX:Anemia Anxiety state, unspecified 01/03/2006 DX:An xiety state, unspecified Other specified personal his tory presenting hazards to health(V15.89) DX:Other specifie d personal history presenting hazards to health(V15.89) Cocaine abuse ([facility] V24, [facility] V28) 09/20/2016 DX:Cocaine abuse ([facility]); COMM ENT: Has been through detox in past Alcohol abuse DX:Alcohol abuse Depression 04/06/2019 DX:Depression Insomnia 04/06/2019 DX:Insomnia Essential hypertension, benign 08/09/2018 Family History Medical History Relation Name Comments Alcohol/Drug Brother Mental illness Brother Alcohol/Drug Father Depression Father Heart attack Father 1st AL in his 5 0's, cig, alcohol Lung cancer Father smoker Other: Other Father seizure Stroke Father Hyperlipidemia Mother passed 2012 Hypertension Mother Stroke Mother Breast cancer Neg Hx Ovarian cancer Neg Hx Relation Name Status Comments Brother (Age 40) alcohol, d epression Father (Age 64) Maternal Grandfather Maternal Grandmother Mother Paternal Grandfather AL Paternal Grandmother AL Social History Tobacco Use Types Packs/Day Years Used Date Smoking Tobacco: Former Cigarettes Q uit: 2020 Smokeless Tobacco: Never Tobacco Cessation:Counseling Given: Not Answered Alcohol Use Standard Drinks/Week Comments Not Currently 0 (1 standard drink = 0.6 oz pur e alcohol) SOBER 3.5 MONTHS Comments Unknown Sex and Gender Information Value Date Recorded Sex Assigned at Female 08/30/2024 9:31 AM EST Legal Sex Female 6:56 PM EST Gender Identity Female 08/30/2024 9:31 AM EST Sexual Orientation Not on file Obstetrics History Last Filed Vital Signs Vital Sign Reading Time Taken Comments Blood Pressure 141/89 08/30/2024 11:01 AM EST Pulse 50 08/30/2024 11:01 AM EST Temperature 36.4 ??C (97.5 ??F) 08/30/2024 10:[address] Respiratory Rate 16 08/30/2024 11:01 AM EST Oxygen Saturation 98% 08/30/2024 11:01 AM EST Inhaled Oxygen Concentration - - Weight 79.4 kg (175 lb) 08/30/2024 9:01 AM EST Height 152.4 cm (5') 08/30/2024 9:01 AM EST Body Mass Index 34.18 08/30/2024 9:01 AM EST Plan of Treatment Health Maintenance Due Date Last Done Comments Hepatitis A Vaccines (1 of 2 - Risk 2-dose series) 12/14/1991 Hepatitis B Vaccines (2 of 3 - 19+ 3-dose series) 06/24/2011 05/27/2011 Breast Cancer Screening 03/29/2021 03/29/2019 Colorectal Cancer Screening: Colonoscopy 09/10/2022 Social Influencers of Health Screening 09/10/2022 Pneumococcal Vaccine: 50+ Years (1 of 1 - PCV) 2022 Zoster Vaccines (1 of 2) 2022 COVID-19 Vaccine (3 - season) 2024 08/24/2021, 04/26/2021 Influenza Vaccine (Season Ended) 2025 09/08/2023, 08/24/2021, 08/20/2021, Additional history exists Hypertension/CHF/CAD Annual BMP Blood Test 08/30/2025 08/30/2024, 08/19/2024, 01/09/2024 Depression Screening 10/15/2025 10/15/2024, 07/23/20 24 Cervical Cancer Screening: HPV 08/04/2026 08/04/2021 Cholesterol Screening (Lipid Panel) 03/18/2029 03/18/2024, 03/18/2024 DTaP,Tdap,and Td Vaccines (5 - Td or Tdap) 03/18/2034 03/18/2024, 09/18/2008, 10/09/1999, Additional history exists MMR Vaccines Aged Out 05/27/2011 No longer eligi ble based on patient's age to complete this topic Hepatitis C Screening Completed 04/18/2022 HIV Screening Completed 06/22/2022 HIB Vaccines Aged Out No longer eligi ble based on patient's age to complete this topic HPV Vaccines Aged Out No longer eligi ble based on patient's age to complete this topic IPV Vaccines Aged Out No longer eligi ble based on patient's age to complete this topic Meningococcal ACWY Vaccine Aged Out N o longer eligible based on patient's age to complete this topic Meningococcal B Vaccine Aged Out No l onger eligible based on patient's age to complete this topic Pneumococcal Vaccine: Pediatrics (0 to 5 Years) and At-Risk Patients (6 to 64 Years) Aged Out No longer eligible based on patient's age to complete this topic RSV Immunization Patients Under 20 months Aged Out No longer eligible based on patient's age to complete this topic Varicella Vaccines Aged Out No longer eligible based on patient's age to complete this topic Procedures Procedure Name Priority Date/Time Associated Diagnosis Comments BASIC METABOLIC PANEL STAT 08/30/2024 9:06 AM EST DEPRESSION SCREENING Routine 07/23/2024 LIPID PANEL Routine 03/18/2024 HIV SCREENING Routine 06/22/2022 HEPATITIS C SCREENING Routine 04/18/2022 HPV Routine 08/04/2021 SCR MAMMO BI INCL CAD Routine 03/29/2019 11:19 AM EDT Encounter for screening mammogram for malignant neoplasm of breast from Last 3 Months or Most Recently Relevant to Health Maintenance Results * (ABNORMAL) Basic metabolic panel (08/30/2024 9:06 AM EST) Sodium 136 133 - 145 mmol/L LAB CHEMISTRY METHOD 08/30/2024 9:44 AM [facility] Potassium 4.4 3.5 - 5.5 mmol/L LAB CHEMISTRY METHOD 08/30/2024 9:44 AM [facility] Chloride 106 96 - 110 mmol/L LAB CHEMISTRY METHOD 08/30/2024 9:44 AM [facility] CO2 24 21 - 32 mmol/L LAB CHEMISTRY METHOD 08/30/2024 9:44 AM [facility] Anion Gap 6 3 - 11 LAB CHEMISTRY METHOD 08/30/2024 9:44 AM [facility] Glucose 121(H) 70 - 100 mg/dL LAB CHEMISTRY METHOD 08/30/2024 9:44 AM [facility] BUN 18 5 - 25 mg/dL LAB CHEMISTRY METHOD 08/30/2024 9:44 AM [facility] Creatinine 0.92 0.50 - 1.10 mg/dL LAB CHEMISTRY METHOD 08/30/2024 9:44 AM [facility] eGFR 76 >=60 mL/min/1. 73m2 LAB CHEMISTRY METHOD 08/30/2024 9:44 AM [facility] Comment:Calculation based on the??Chronic Kidney Disease Epidemiology Collaboration (CKD-EPI) equation refit??without adjustment for race. BUN/Creatinine Ratio 19.6 LAB CHEMISTRY METHOD 08/30/2024 9:44 AM [facility] Calcium 9.2 8.5 - 10.5 mg/dL LAB CHEMISTRY METHOD 08/30/2024 9:44 AM [facility] Blood Venous blood specimen / Unknown Venipuncture / Unknown 08/30/2024 9:06 AM EST 08/30/2024 9:21 AM EST us Сергей Rodriguez MD LAB BLOOD ORDERABLES Sandie l Result [facility] [address] [place] [address], [place] [phone] * Depression Screening (07/23/2024) Pathologist [facility] Depression Screening abstracted [facility] Provider MD HEALTH MAINTENANCE Final Result * (ABNORMAL) Lipid panel (03/18/2024) Pathologist [facility] LDL/HDL Ratio 6(A) 0 - 4 Triglycerides 366(A) 0 - 150 mg/dL Cholesterol 265(A) 0 - 200 mg/dL HDL 46 >=40 mg/dL LDL Cholesterol 146(A) 0 - 100 mg/dL Blood Venous blood specimen / Unknown [facility] Provider MD LAB BLOOD ORDERABLES Sandie l Result * HIV Screening (06/22/2022) [facility] HIV Screening abstracted [facility] Provider MD HEALTH MAINTENANCE Final Result * Hepatitis C Screening (04/18/2022) [facility] Hepatitis C Screening abstracted [facility] Provider MD HEALTH MAINTENANCE Final Result * Cervical Cancer Screening: HPV (08/04/2021) [facility] Cervical Cancer Screening: HPV abstracted, negative [facility] Provider HEALTH MAINTENANCE Final Result * SCR MAMMO BI INCL CAD (03/29/2019 11:19 AM EDT) Anatomical Region Laterality Modality Radiographic Patricia ging 12/18/2018 11:2 2 AM EDT Narrative 03/29/2019 3:52 PM EDT This is a summary report. The complete report is available in the patient's medical record. If you cannot access the medical record, please contact the sending organization for a detailed fax or copy. Full field digital screening mammography, reviewed with CAD and compared to previous. ??The breasts are composed of fatty and fibroglandular tissue. ??No suspicious mass, architectural distortion or suspicious calcifications are identified. IMPRESSION: : No mammographic evidence of malignancy. BIRADS 1-Negative; N. 5 year breast cancer risk assessment 0.5 % Lifetime breast cancer risk assessment 4.5 % Breast cancer risk category Breast cancer risk not assessed Procedure Note Jacki Cummins MD - 09/27/2022 This is a summary report. The complete report is available in thepatient's medical record. If you cannot access the medical record, pleasecontact the sending organization for a detailed fax or copy. Full field digital screening mammography, reviewed with CAD and comparedto previous. The breasts are composed of fatty and fibroglandular tissue.No suspicious mass, architectural distortion or suspicious calcificationsare identified. IMPRESSION: : No mammographic evidence of malignancy. BIRADS 1-Negative; N. 5 year breast cancer risk assessment 0.5 % Lifetime breast cancer risk assessment 4.5 % Breast cancer risk category Breast cancer risk not assessed us [facility]CGILL IMG XR PROCEDURES Final Re sult from Last 3 Months or Most Recently Relevant to Health Maintenance Care Teams First Line Production Supervisor Relationship Specialty Start Date End Date Sharee Walker MD [address] [place] [id number] PCP - General Internal Medicine 08/19/24
--- OUTSIDE RECORDS SUMMARY | 2025-02-14 14:23 | XMS_ITS | Encounter Summary ---
Author Organization [facility] Address [address] [place] [address] Care Team Providers Care Production Quality Manager Name Role Phone KanePita lebron STOCK CLIPPER-C Primary Care Provider [phone] Reason for Visit * Reason Comments Care Coordination Encounter Details Date Type Department Care Team (Late st Contact Info) Description 02/11/2025 Interim Notes [facility] [address] [place] [address] Rogers Glenna [address] [place] [address] Social History Tobacco Use Types Packs/Day Years [...] as of this encounter Progress Notes * Glenna Mccloud - 02/11/2025 8:02 AM EDT Patient identified through delegated risk strat. Patient engaged with CP-ICP. Assigned to Rosa PARRISH. documented in this encounter Plan of Treatment Upcoming Encounters Date Type Department Care Team (Late st Contact Info) Description 04/09/2025 9:20 AM EDT Office Visit [address] [phone] Slava Valentine MD [address] [place] [address] documented as of this encounter Visit Diagnoses Not on filedocumented in this encounter Additional Health Concerns Assessment Noted Time PHQ-9 Depression Total Score: 0 10/15/19 10:20 AM PST documented as of this encounter Care Teams Production Quality Manager Relationship Specialty Start Date End Date Pita Middleton FNP-C [address] [place] [address] PCP - General Internal Medicine 10/17/24 documented as of this encounter
--- OUTSIDE RECORDS SUMMARY | 2025-02-14 14:23 | XMS_ITS | Clinical Summary ---
Author Organization [facility] Address [address] [place] [address] Care Team Providers Care Building Appraiser Name Role Phone KanePita lebron SCHOOL AIDE-C Primary Care Provider [phone] Source Comments PLEASE NOTE, if this patient is a minor, it may be UNLAWFUL to discuss sensitive information that is contained in these records (such as FAMILY PLANNING, MENTAL HEALTH or SUBSTANCE ABUSE) with the minor patient's parent or other person without the patient's specific authorization.[facility] Allergies Active Allergy Reactions Criticality Noted Date Comments Amlodipine 10/15/2024 Hydrochlorothiazide 10/15/2024 Medications DULoxetine (CYMBALTA) [address] capsule Take 30 mg by mouth daily 4 Active loratadine (CLARITIN) 10 mg tablet Take 10 mg by mouth daily 4 Active traZODone (DESYREL) 100 mg tablet Take 100 mg by mouth nightly at bedtime 4 Active cloNIDine (CATAPRES) 0.1 mg tablet Take 0.1 mg by mouth nightly at bedtime Active ibuprofen 600 mg tabletIndication s:Fibromyalgia Take 1 Tablet by mouth 3 (three) times daily as needed for pain 90 Tablet 1 5 Active acetaminophen (TYLENOL) 500 mg tabletIndication s:Fibromyalgia Take 1 Tablet by mouth every 6 (six) hours as needed for pain 90 Tablet 1 5 Active busPIRone (BUSPAR) 15 mg tablet Take 1 Tablet by mouth daily Take 1 Tablet by mouth daily. Per psych Shon cambell 90 Tablet 1 5 Active metFORMIN XR (GLUCOPHAGE-XR) 500 mg 24 hr tabletIndication s:Prediabetes Take 1 Tablet by mouth once daily with dinner 90 Tablet 1 5 Active cyanocobalamin (VITAMIN B-12) 1,000 mcg tablet Take 1 Tablet by mouth daily 90 Tablet 1 5 Active thiamine mononitrate (VITAMIN B1) tablet Take 1 Tablet by mouth once daily 90 Tablet 1 5 Active estradioL (VIVELLE-DOT) 0.05 mg/[address] 1 Patch onto the skin 2 times a week 8 Patch 1 5 Active levothyroxine 100 mcg tablet Take 1 Tablet by mouth once daily 90 Tablet 1 5 Active cholecalciferol, vitamin D3, 25 mcg (1,000 unit) capsule Take 1 Capsule by mouth daily 90 Capsule 1 5 Active lisinopriL 20 mg tabletIndication s:Primary hypertension Take 1 Tablet by mouth daily 90 Tablet 1 5 Active metoprolol succinate XL (TOPROL-XL) 25 mg 24 hr tabletIndication s:Primary hypertension Take 2 tablet (50mg) in the morning and take 2 tablets (50 mg) in the afternoon. 270 Tablet 1 5 Active blood pressure monitorIndicatio ns:Primary hypertension Check BP daily as needed. Lifetime need. Dx I10.0 1 Kit 5 Active gabapentin (NEURONTIN) 600 mg tablet Take 1 Tablet by mouth 3 (three) times daily 90 Tablet 2 5 Active lisinopriL 10 mg tablet Take 10 mg by mouth daily 4 01/22/20 25 Discontinu ed(Reorder (E-Cancel Not Sent)) gabapentin (NEURONTIN) 600 mg tablet Take 1 Tablet by mouth 3 (three) times daily 90 Tablet 2 5 01/31/20 25 Discontinu ed(Reorder (E-Cancel Not Sent)) metoprolol succinate XL (TOPROL-XL) 25 mg 24 hr tabletIndication s:Primary hypertension Take 1 tablet (25 mg) in the morning and take 2 tablets (50 mg) in the afternoon. 270 Tablet 1 5 01/22/20 25 Discontinu ed(Therapy completed/ Not needed) Active Problems Problem Noted Date Diagnosed Date Primary hypertension 10/15/2024 Vitamin D deficiency 10/15/2024 Prediabetes 08/10/2022 Fibromyalgia 06/16/2021 Overview (10/15/2024): Sx are always there-more focally located than would expect tolerating gabapentin at 600 tid, and cymbalta 30 Insomnia 04/06/2019 Overview (10/15/2024): Currently follows Psych: Baldemar Sharpe and Therapist: [facility]. [place] 03/12/2019 Alcohol abuse 09/28/2017 Overview (10/15/2024): Completed IM naltrexone and campral Sober for 5 months Cocaine abuse [place] 09/20/2016 Overview (10/15/2024): Has been through detox in past Tobacco use disorder 06/12/2012 Overview (10/15/2024): Stopped cigarettes 3 years ago, currently vaping Hypothyroidism 09/15/2011 Anxiety state 01/03/2006 Overview (10/15/2024): Currently follows Psych: Baldemar Sharpe and Therapist: [facility]. Encounters Date Type Department Care Team Description 02/11/2025 Interim Notes [address] [phone] Rosa Clifford RN 02/11/2025 Interim Notes [address] [phone] Glenna Mccloud 01/21/2025 3:20 PM EDT Office Visit [address] [phone] Pita Middleton FNP-C Primary hypertension 01/07/2025 3:40 PM EDT Office Visit [address] [phone] Slava Valentine MD Menopause syndrome (Primary Dx) 12/04/2024 Erroneous Telephone Encounter [address] [phone] Pita Middleton FNP-C 12/03/2024 2:00 PM EST Office Visit [address] [phone] Pita Middleton FNP-C Primary hypertension (Primary Dx); Fibromyalgia 11/26/2024 3:40 PM EST Office Visit [address] [phone] Slava Valentine MD Menopause syndrome (Primary Dx); Adverse effect due to correct medicinal substance, properly given, subsequent encounter from Last 3 Months Immunizations Immunization Administration Dates Next Due Flu, Cell Culture based, Pre servative Free, 6m+, Flucelvax 09/08/2023,08/24/2021 Hep B, Adult/Adol (ENERGIX/RECOMBIVAX) 1 INFLUENZA, SEASONAL, INJECTABLE 09/20/2016,06/23 INFLUENZA, SEASONAL, INJECTA BLE, PRESERVATIVE FREE 07/04/2020 INFLUENZA, UNSPECIFIED 08/20/2021 MMR (MMR II/Priorix) 05/27/2011 Rubella, Live 05/12/2009 TDAP 03/18/2024,09/18/2008,10/09/1999 Td(adult),2 Lf tetanus toxoi d,preservative free 10/09/1999 ZOSTER VACCINE, RECOMBINANT (SHINGRIX) 5 Social History Tobacco Use Types Packs/Day Years Used Date Smoking Tobacco: Former Cigarettes Passive Smoke Exposure: Never Smokeless Tobacco: Never Tobacco Cessation:Counseling Given: Not Answered Comments:Quit 3 years ago Alcohol Use Standard [...] Orientation Straight 05/01/2024 8: 42 AM PDT Last Filed Vital Signs Vital Sign Reading Time Taken Comments Blood Pressure 150/92 01/21/2025 3:25 PM EDT Pulse 58 01/21/2025 3:25 PM EDT Temperature 36.4 ??C (97.6 ??F) 01/21/2025 3:25 PM ED T Respiratory Rate 16 01/21/2025 3:25 PM EDT Oxygen Saturation 98% 01/21/2025 3:25 PM EDT Inhaled Oxygen Concentration - - Weight 83.9 kg (185 lb) 01/21/2025 3:25 PM EDT Height 157.5 cm (5' 2 ) 01/21/2025 3:25 PM EDT Body Mass Index 33.84 01/21/2025 3:25 PM EDT Plan of Treatment Upcoming Encounters Date Type Department Care Team (Late st Contact Info) Description 04/09/2025 9:20 AM EDT Office Visit [address] [phone] Slava Valentine MD [address] [place] [address] Health Maintenance Due Date Last Done Comments Anxiety Screening 1972 HPV Screening 1972 Breast Cancer Screening (Mammogram) 2012 CT Colonography 2017 Colonoscopy 2017 Colorectal Cancer Screening 2017 FIT/gFOBT 2017 Fecal DNA 2017 Flexible Sigmoidoscopy 2017 Imm-Zoster, Recombinant (2 of 2) 12/10/2024 10/15/2024 Imm-Influenza (#1) 2025 09/08/2023, 1 10/24/2020, 08/20/2021, Additional history exists Postponed from 06/09/2024 (Patient postponement) [id number] ( season) 2025 Postponed from 06/09/2024 (Patient postponement) Annual Preventive Care Visit 10/15/2025 10/15/2024 Diabetes Screening 10/15/2025 10/15/2024, 0 10/15/2024, 10/15/2024, Additional history exists Syphilis Screening 10/15/2025 10/15/2024 TSH Monitoring 10/15/2025 10/15/2024, 04/2025, 08/19/2024 Tobacco Cessation Counseling (#1) 10/15/2025 Tobacco Screening 10/15/2025 10/15/2024 Lipid Screening 10/15/2027 10/15/2024, 03/18/2024 Pap Smear 10/23/2027 10/23/2024 Cervical Cancer Screening 10/23/2029 Pap + HPV 10/23/2029 10/23/2024 Imm-DTaP/Tdap/Td (4 - Td or Tdap) 03/18/2034 03/18/2024, 09/18/2008, 10/09/1999, Additional history exists Imm-Hepatitis B Discontinued 05/27/2011 Alcohol and Drug Screen Completed 10/15/2024 Depression Annual Screen Completed 10/15/2024 HIV Screening Completed 10/15/2024, 04/2025, 06/22/2022 Hepatitis C Screening Completed 10/15/2024 Cervical Ablation/Cold-Knife Conization Discontinued Cervical Cryotherapy Discontinued Colposcopy Discontinued Endometrial Biopsy Discontinued Excision/Leep Discontinued HPV Genotyping Discontinued Vaginal Pap Discontinued Vulvoscopy Discontinued Procedures Procedure Name Priority Date/Time Associated Diagnosis Comments THINPREP IMAGING PAP, HPV MRNA E6/E7 RFLEX HPV 16,18/45 CT/NG Routine 10/23/2024 1:35 PM EST Pap smear for cervical cancer screening RPR (MONITOR) W/REFL TITER Routine 10/15/2024 11:29 AM EST Fatigue, unspecified type HIV 1/2 AG & AB W/RFLX (4TH GEN) Routine 10/15/2024 11:27 AM EST Routine general medical examination at a health care facility TSH W/RFLX FREE T4 Routine 10/15/2024 11 :27 AM EST Routine general medical examination at a health care facility HEPATITIS C AB W/RFLX HCV RNA, QT, RT PCR Routine 10/15/2024 11:27 AM EST Routine general medical examination at a health care facility COMPREHENSIVE METABOLIC PANEL Routine 10/15/2024 11:27 AM EST Routine general medical examination at a health care facility LIPID PANEL Routine 10/15/2024 11:27 AM EST Routine general medical examination at a [facility] care facility from Last 3 Months or Most Recently Relevant to Health Maintenance Results * THINPREP IMAGING PAP, HPV MRNA E6/E7 RFLEX HPV 16,18/45 CT/NG (10/23/2024 1:35 PM EST) CHLAMYDIA TRACHOMATIS RNA, TMA NOT DETECTED NOT DETECTED Bottle NEISSERIA GONORRHOEAE RNA, TMA NOT DETECTED NOT DETECTED Bottle COMMENT Bottle CLINICAL INFORMATION See Note Bottle Comment:None given LMP See Note Bottle Comment:NONE GIVEN PREV. PAP See Note Bottle Comment:NONE GIVEN PREV. BX See Note Bottle Comment:NONE GIVEN SOURCE See Note Bottle Comment:None given STATEMENT OF ADEQUACY See Note Bottle Comment: Satisfactory for evaluation. Endocervical/transformation zone component present. INTERPRETATION/RESU LT See Note Bottle Comment: Cytology Results: Negative for intraepithelial lesion or malignancy. COMMENT See Note Bottle Comment: This Pap test has been evaluated with computer assisted technology. GLASS FURNACE TENDER See Note [facility]LY [facility], [facility] [place] Comment: RK, CT(ASCP) CT screening location: [address] ??[address] COMMENT Bottle HPV MRNA E6/E7 Not Detected Not Detected Bottle Comment: Methodology: Arch Pad Cementer-Mediated Amplification This assay detects E6/E7 viral messenger RNA (mRNA) from 14 high-risk HPV types (16,18,31,33,35,39,45,51,52,56,58,59,66,68). Cervical sources are required for HPV testing. If a vaginal source from a patient who has had a total hysterectomy with removal of cervix was submitted, please contact the testing laboratory for alternative testing options. For additional information, please refer to http://Aluwave.CrowdTunes/faq/DHD460b1 (This link if provided for information/ educational purposes only.) Swab Cervix uteri structure / Unknown 10/23/2024 1:35 PM EST 10/25/2024 3:47 AM EST Narrative [facility] Clerk [facility] - 10/26/2024 1:51 AM EST EXPLANATORY NOTE: The Pap is a screening test for cervical cancer. It is not a diagnostic test and is subject to false negative and false positive results. It is most reliable when a satisfactory sample, regularly obtained, is submitted with relevant clinical findings and history, and when the Pap result is evaluated along with historic and current clinical information. The analytical performance characteristics of this assay, when used to test SurePath(TM) specimens have been determined by [employer]. The modifications have not been cleared or approved by the FDA. This assay has been validated pursuant to the CLIA regulations and is used for clinical purposes. For additional information, please refer to https://Aluwave.CrowdTunes/faq/FTH250 (This link is being provided for information/ educational purposes only.) [facility] - NO BLOOD DRAW Final Resu lt [employer] [address] [address], [employer] [address] [address] * RPR (MONITOR) W/REFL TITER (10/15/2024 11:29 AM EST) RPR (MONITOR) W/REFL TITER NON-REACT PIERO NON-REACT PIERO [employer] [facility] Blood Blood / Unknown 10/15/2024 1 1:29 AM EST 10/15/2024 11:31 AM EST Narrative [employer] [facility] - 10/16/2024 12:02 PM EST FASTING:NO Arthur [facility] - BLOOD DRAW Final Result Performing Organization Address [facility] de Phone Number [employer] [address] [address], [employer] [address] [address] * HEPATITIS C AB W/RFLX HCV RNA, QT, RT PCR (10/15/2024 11:27 AM EST) Pathologist [facility] [place] HEPATITIS C ANTIBODY NON-REACT PIERO NON-REACT PIERO [employer] [facility] Comment: HCV antibody was non-reactive. There is no laboratory evidence of HCV infection. In most cases, no further action is required. However, if recent HCV exposure is suspected, a test for HCV RNA (test code 57291) is suggested. For additional information please refer to http://education.CrowdTunes/faq/DXS58w3 (This link is being provided for informational/ educational purposes only.) Blood Blood / Unknown 10/15/2024 1 1:27 AM EST 10/15/2024 11:28 AM EST Narrative [employer] [facility] - 10/19/2024 4:38 PM EST FASTING:NO Pita Middleton SCHOOL AIDE-C LAB - BLOOD DRAW Edited R esult - Final Performing Organization Address City/[facility] Co de Phone Number [employer] [address] [address], [employer] [address] [address] * HIV 1/2 AG & AB W/RFLX (4TH GEN) (10/15/2024 11:27 AM EST) Pathologist [facility] [place] HIV AG/AB, 4TH GEN NON-REAC TIVE NON-REAC TIVE [employer] [facility] Comment: HIV-1 antigen and HIV-1/HIV-2 antibodies were not detected. There is no laboratory evidence of HIV infection. PLEASE NOTE: This information has been disclosed to you from records whose confidentiality may be protected by state law. ??If your state requires such protection, then the state law prohibits you from making any further disclosure of the information without the specific written consent of the person to whom it pertains, or as otherwise permitted by law. A general authorization for the release of medical or other information is NOT sufficient for this purpose. ?? For additional information please refer to http://education.CrowdTunes/faq/WBZ034 (This link is being provided for informational/ educational purposes only.) The performance of this assay has not been clinically validated in patients less than 2 years old. Blood Blood / Unknown 10/15/2024 1 1:27 AM EST 10/15/2024 11:28 AM EST Narrative [employer] [facility] - 10/19/2024 4:38 PM EST FASTING:NO Pita Middleton SCHOOL AIDE-C LAB - BLOOD DRAW Final Re sult [employer] [address] [address], [employer] [address] [address] * TSH W/RFLX FREE T4 (10/15/2024 11:27 AM EST) TSH W/REFLEX TO FT4 1.41 0.40 - 4.50 mIU/L [employer] [facility] Comment: ?Reference Range ?> or = 20 Years ??0.40-4.50 ? Ranges ?First trimester ?0.26-2.66 ?Second trimester ?? 0.55-2.73 ?Third trimester ?0.43-2.91 Blood Blood / Unknown 10/15/2024 1 1:27 AM EST 10/15/2024 11:28 AM EST Narrative [employer] [facility] - 10/19/2024 4:38 PM EST FASTING:NO Pita Middleton SCHOOL AIDE-C LAB - BLOOD DRAW Edited R esult - Final Performing Organization Address [facility] Co de Phone Number [employer] [address] [address], [employer] [address] [address] * (ABNORMAL) LIPID PANEL (10/15/2024 11:27 AM EST) CHOLESTEROL, TOTAL 218(H) <200 mg/dL [employer] [facility] HDL CHOLESTEROL 51 > OR = 50 mg/dL [employer] [facility] TRIGLYCERIDES 157(H) <150 mg/dL [employer] [facility] LDL-CHOLESTEROL 138(H) 99 mg/dL (calc) [employer] [facility] Comment: Reference range: <100 Desirable range <100 mg/dL for primary prevention; ?? <70 mg/dL for patients with CHD or diabetic patients with > or = 2 CHD risk factors. LDL-C is now calculated using the Steffen-Elpidio calculation, which is a validated novel method providing better accuracy than the Friedewald equation in the estimation of LDL-C. Steffen SS et al. SUSANA. 2013;310(19): 6702-2272 (http://education.BuddyBet/faq/YYZ417) CHOL/HDLC RATIO 4.3 <5.0 (calc) [employer] [facility] NON-HDL CHOLESTEROL 167(H) <130 mg/dL (calc) [employer] [facility] Comment: For patients with diabetes plus 1 major ASCVD risk factor, treating to a non-HDL-C goal of <100 mg/dL (LDL-C of <70 mg/dL) is considered a therapeutic option. Blood Blood / Unknown 10/15/2024 1 1:27 AM EST 10/15/2024 11:28 AM EST Narrative [employer] [facility] - 10/19/2024 4:38 PM EST FASTING:NO Pita Middleton SCHOOL AIDE-C LAB - BLOOD DRAW Final Re sult Performing Organization Address [facility]/ZIP Co de Phone Number [employer] [facility] [address] [address], [employer] [facility] [address] [place] [address] * COMPREHENSIVE METABOLIC PANEL (10/15/2024 11:27 AM EST) GLUCOSE 109 65 - 139 mg/dL [employer] [facility] Comment: ?Non-fasting reference interval UREA NITROGEN (BUN) 13 7 - 25 mg/dL [employer] [facility] CREATININE (blood) 0.83 0.50 - 1.03 mg/dL [employer] [facility] EGFR 85 > OR = 60 mL/min/1. 73m2 [employer] [facility] BUN/CREATININE RATIO SEE NOTE: [employer] [facility] Comment: ?? Not Reported: BUN and Creatinine are within ?? reference range. ? SODIUM 139 135 - 146 mmol/L [employer] [facility] POTASSIUM 4.3 3.5 - 5.3 mmol/L [employer] [facility] CHLORIDE 104 98 - 110 mmol/L [employer] [facility] CARBON DIOXIDE 27 20 - 32 mmol/L [employer] [facility] CALCIUM 9.4 8.6 - 10.4 mg/dL [employer] [facility] PROTEIN, TOTAL 7.3 6.1 - 8.1 g/dL [employer] [facility] ALBUMIN 4.5 3.6 - 5.1 g/dL [employer] [facility] GLOBULIN 2.8 1.9 - 3.7 g/dL (calc) [employer] [facility] ALBUMIN/GLOBULI N RATIO 1.6 1.0 - 2.5 (calc) [employer] [facility] BILIRUBIN, TOTAL 0.3 0.2 - 1.2 mg/dL [employer] [facility] ALKALINE PHOSPHATASE 89 37 - 153 U/L [employer] [facility] AST 19 10 - 35 U/L [employer] [facility] ALT 19 6 - 29 U/L [employer] [facility] Blood Blood / Unknown 10/15/2024 1 1:27 AM EST 10/15/2024 11:28 AM EST Narrative [employer] [facility] - 10/19/2024 4:38 PM EST FASTING:NO us Pita CHATMANP-C LAB - BLOOD DRAW Edited R esult - Final Performing Organization Address City/[facility]/ZIP Co de Phone Number [facility] [address] [address], [facility] [address] [place] [address] from Last 3 Months or Most Recently Relevant to Health Maintenance Insurance [facility] [place] Care Teams Building Appraiser Relationship Specialty Start Date End Date Pita Middleton FNP-C [facility] [place] [address] PCP - General Internal Medicine 10/17/24
[2025-02-14 14:47] LABS: Ethanol 151 mg/dL
[2025-02-14 14:50] LABS: Alanine Aminotransferase 25 U/L (0-31); Albumin Level 4.2 g/dL (3.5-5.0); Alkaline Phosphatase 81 U/L (39-117); Anion Gap 9 (12-20); Aspartate Amino Transferase 30 U/L (5-31); Bilirubin Total 0.2 mg/dL (0.0-1.0); Blood Urea Nitrogen 17 mg/dL (9-16); Calcium 9.1 mg/dL (8.4-10.2); Carbon Dioxide 30 mmol/L (22-29); Chloride 102 mmol/L (96-108); Creatinine Clr Calc Pharmacy 71.6; Estimated Glomerular Filt Rate > 60; Glucose Fasting 105 mg/dL (60-99); Glucose Random 103 mg/dL (60-115); Lipase 15 U/L (8-78); Magnesium 1.8 mg/dL (1.6-2.6); Sodium 137 mmol/L (135-145); Total Protein 7.5 g/dL (6.5-8.0)
[2025-02-14 15:15] VITALS: BP 140/78; PULSE 62; RESP 16; TEMP 36.8; O2SAT 98
[2025-02-14 15:29] VITALS: BP 140/78; PULSE 62; RESP 16; TEMP 36.8; O2SAT 98
== END 2025-02-14 15:50 | disposition home or self-care (01) ==
PROVIDERS: Physician Assistant Medical; Emergency Provider Emergency Medicine
DX: R55 Syncope and collapse (principal); F10.920 Alcohol use, unspecified with intoxication, uncomplicated; Y90.6 Blood alcohol level of 120-199 mg/100 ml; E86.0 Dehydration; I10 Essential (primary) hypertension
CPT/HCPCS: 36415; 80053; 80307; 83690; 83735; 93005; 96361; 96374; 99284; J2405; J7120

== ENCOUNTER → 2025-02-14 13:34 | Outpatient (BNV) | payer MEDICAID, SELFPAY | PROVIDERS: Emergency Provider Emergency Medicine; Visit Provider Internal Medicine | DX: R55 Syncope and collapse (principal) | CPT/HCPCS: 93010 ==

== ENCOUNTER 2025-09-16 10:52 | Emergency (ER) | payer SELFPAY ==
--- NOTE | ~2025-09-16 | XR_ITS ---
EXAMINATION: XR CHEST CLINICAL INFORMATION: dyspnea COMPARISON: None available. TECHNIQUE: 2 views of the chest were obtained. FINDINGS: The cardiomediastinal silhouette is within normal limits. The lungs are well expanded. There is hazy opacity in the medial right lung base. No effusion. No pneumothorax. No acute osseous abnormality. XR/XR chest 2V IMPRESSION: Hazy opacity in the medial right lung base could reflect atelectasis or infiltrate. Electronically signed by: Shankar Cook MD 09/16/2025 12:06 PM MARIA M
--- NOTE | 2025-09-16 11:29 | ED.URI ---
HPI - URI/Sore Throat General Chief Complaint: Upper Respiratory Symptoms Stated Complaint: Cough Congestion Running Nose Source: patient and old records reviewed Mode of arrival: ambulatory Limitations: no limitations History of Present Illness ED Provider: Patient left without completing treatment Related Data Allergies Allergy/AdvReac Type Severity Reaction Status Date / Time amlodipine Allergy Unknown Verified 09/16/25 11:36 hydrochlorothiazide Allergy Unknown Verified 09/16/25 11:36 [facility] Social History Social History Advance Directives: No Advance Directives Information Provided: No Physical Exam Vital Signs: Vital Signs: Last Vital Signs Temp 97.1 F 09/16/25 11:30 Pulse 76 09/16/25 11:30 Resp 16 09/16/25 11:30 BP 133/80 09/16/25 11:30 Pulse Ox 97 09/16/25 11:30 O2 Del Method Room Air 09/16/25 11:30 BMI result Body Mass Index 33.1 Course Course Course Narrative: 54 yo female with PMH of bronchitis who vapes, pre diabetic, fibromyalgia, HTN here with c/o URI symptoms - cough, sputum, belly aches, body aches, pain in the feet with swelling near plantar insert after exposure to a client. Illness started . Exposed to sick client one week prior. Labs, CXR, viral panel ordered this is a RAPID medical screening exam the rest of the history and physical exam is to be done by the main provider. DEMARCUS 09/16/25 1136am Discharge Plan Discharge Clinical Impression: Diagnosis unknown Patient Disposition: Left W/O Completing Treatment Discharge Date/Time: 09/16/25 14:25
[2025-09-16 11:30] VITALS: BP 133/80; PULSE 76; RESP 16; TEMP 36.2; O2SAT 97; BMI 33.1
--- NOTE | 2025-09-16 14:02 | MHC.EDTECH ---
called pt 3X in the waiting room, no response
--- OUTSIDE RECORDS SUMMARY | 2025-09-16 20:20 | XMS_ITS ---
Author Name [facility] Organization Unknown Care Team Organization Name Specialty Phone Email Start Date End Da te [facility] 08/16/20222023
== END 2025-09-16 14:25 | disposition left against medical advice (07) ==
PROVIDERS: Emergency Provider Emergency Medicine
DX: R05.9 Cough, unspecified (principal); R06.00 Dyspnea, unspecified; Z53.29 Procedure and treatment not carried out because of patient's decision for other reasons; I10 Essential (primary) hypertension
CPT/HCPCS: 71046; 99281; 99283

== ENCOUNTER → 2025-09-16 11:33 | Outpatient (BNV) | payer MEDICAID, SELFPAY | PROVIDERS: Visit Provider Radiology Diagnostic Ultrasound | DX: R91.8 Other nonspecific abnormal finding of lung field (principal) | CPT/HCPCS: 71046 ==